=== PATIENT | male | born 1965 | race Caucasian/White ===

== ENCOUNTER 2018-04-06 06:42 | Day surgery (SDC) | payer OTHER ==
[~2018-04-06] VITALS: Ht 170.2 cm; Wt 108.3 kg
[~2018-04-06 06:42] MED LIST: AMAN100T PO; AUG875 PO; HYDR25TA6 PO; LEVE750T70 PO
[2018-04-06 07:49] VITALS: Ht 170.2 cm; Wt 108.3 kg
[2018-04-06] MEDS ORDERED: FIBER TABLET (08:00)
[2018-04-06] MEDS ORDERED: TUMERIC (08:00)
[2018-04-06] MEDS ORDERED: VITAMIN D (08:00)
[2018-04-06] MEDS ORDERED: MULTIVITAMIN (08:00)
[2018-04-06] MEDS ORDERED: VITAMIN B12 (08:00)
[2018-04-06 08:04] VITALS: BP 127/81; PULSE 71; RESP 14
[2018-04-06] MEDS ORDERED: FENTAnyl 50 MCG/ML VIAL ONE (09:41)
[2018-04-06] MEDS ORDERED: MIDAZOLAM 1 MG/ML 2 ML INJ ONE ×3 (09:41)
[2018-04-06 09:57] VITALS: BP 147/73; PULSE 82; RESP 14
== END 2018-04-06 11:44 | disposition home or self-care (01) ==
LOC: GIL 06:42
PROVIDERS: ATTEND Internal Medicine Gastroenterology
DX: Z12.11 Encounter for screening for malignant neoplasm of colon (principal); D12.5 Benign neoplasm of sigmoid colon; K64.4 Residual hemorrhoidal skin tags
CPT/HCPCS: 45380; 45385; 88305; J2250; J3010; Z7610